=== PATIENT | female | born 1955 | race Caucasian/White ===

== ENCOUNTER 2022-03-11 19:36 | Inpatient (IN) | payer BC ==
[~2022-03-11] VITALS: Ht 160 cm; Wt 80.0 kg
[2022-03-11] VITALS (19 sets, daily range): BP systolic 110–229; BP diastolic 54–163
--- NOTE | 2022-03-11 19:40 | NUR ---
PT TO ROOM 12 FOR TRIAGE.
[2022-03-11 20:32] LABS: URINE BILIRUBIN - DIPSTICK NEGATIVE (NEGATIVE); URINE BLOOD DIPSTICK NEGATIVE (NEGATIVE); URINE COLOR YELLOW; URINE GLUCOSE - DIPSTICK NEGATIVE (NEGATIVE); URINE KETONE NEGATIVE (NEGATIVE); URINE LEUK ESTERASE NEGATIVE (NEGATIVE); URINE PROTEIN - DIPSTICK NEGATIVE (NEG-TRACE); URINE UROBILINOGEN - DIPSTICK 0.2 E.U./dL (0.2)
[2022-03-11 20:33] LABS: HEMATOCRIT 44.1 % (37.0-47.0); HEMOGLOBIN 14.8 g/dl (12.0-16.0); IMMATURE GRANULOCYTES 0.1 % (0.0-5.0); MEAN CELL VOLUME 90.2 fL CALC (80.0-100.0); MEAN CORPUSCULAR HGB 30.3 pG CALC (26.0-32.0); MEAN CORPUSCULAR HGB CONC 33.6 g/dL CAL (32.0-36.0); NEUT# 4.15 thou/uL (2.00-7.15); RED BLOOD COUNT 4.89 mill/uL (4.20-5.60); RED CELL DISTRI WIDTH 12.1 % (11.5-15.5)
[2022-03-11 20:36] LABS: URINE NITRITE - DIPSTICK NEGATIVE (Negative)
[2022-03-11 20:43] LABS: ALBUMIN 5.1 g/dL (3.2-5.0); ALKALINE PHOSPHATASE 86 u/l (38-126); ANION GAP 13 (6-22 (CALC)); BILIRUBIN, TOTAL 0.6 mg/dL (0.0-1.4); BUN 19 mg/dL (8-23); BUN/CREATININE RATIO 24 (12-20 (CALC)); CARBON DIOXIDE 28 mmol/l (22-30); CHLORIDE 104 mmol/l (95-108); CPK 71 u/l (30-165); CREATININE 0.8 mg/dL (0.5-1.0); ETHYL ALCOHOL 0 mg/dl (0-30); GFR FOR AFR.AMER. > 60 ML/MIN (>=60 (CALC)); GFR OTHER RACES > 60 ML/MIN (>=60 (CALC)); MAGNESIUM 1.8 mg/dL (1.6-2.3); POTASSIUM 3.9 mmol/l (3.5-5.1); SGOT/AST 24 u/l (9-36); SODIUM 140 mmol/l (137-146); TOTAL PROTEIN 7.7 g/dL (6.3-8.2)
[2022-03-11 20:47] LABS: ACT PARTIAL THROMBO TIME 24.7 SECONDS (20.0-32.5); PROTHROMBIN TIME 10.1 SECONDS (9.0-12.5)
[2022-03-11 20:56] LABS: MYOGLOBIN 26 ng/mL (0 - 62)
[2022-03-11 21:14] LABS: TSH, 3RD GENERATION 2.92 uIU/mL (0.47 - 4.68)
--- NOTE | 2022-03-11 22:43 | NUR ---
66 yr old white female admitted icu4 per stretcher from er. transferred self to bed. bed weight obtained. cardiac catheterization technician shows sinus rhythm. cardizem gtt infusing per rac site. history obtained per pt. oriented to room. fall precautions initiated.
[2022-03-12] VITALS (18 sets, daily range): BP systolic 100–186; BP diastolic 45–98
--- NOTE | 2022-03-12 00:01 | NUR ---
eyes closed. no distress. front desk monitor shows sinus fred.
--- NOTE | 2022-03-12 02:00 | NUR ---
resting wuietly. resps even & unlabored. no apparent distress.
--- NOTE | 2022-03-12 02:20 | NUR ---
lab here. blood drawn.
--- NOTE | 2022-03-12 05:52 | NUR ---
amb self to br then back to bed. vita well.
--- NOTE | 2022-03-12 09:00 | NUR ---
report received from Lary Obrien RN; care assumed
--- NOTE | 2022-03-12 09:20 | NUR ---
pt awake in bed; no apparent distress noted; pt offers no complaints; assessment completed at this time; pt alert and oriented; denies pain, chest pain; resp even and unlabored; lungs clear; skin color wnl; ra; hr reg; strong pulses; no edema noted; sr on monitor; abd soft with bs present; no bm noted per appeals writer; no urine to inspect at this time; #20 flushed and patent to rac; no redness or edema noted at site; plan of care explained; pt admits to having a similiar episode of irreg heart rate/ palpitations 2 years ago; pt also voices she has severe "white coat syndrome"; call light within reach; will continue to monitor
--- NOTE | 2022-03-12 09:30 | NUR ---
Dr Angeles present at bedside to assess pt and discuss plan of care
--- NOTE | 2022-03-12 11:10 | NUR ---
pt transferred to echo department via wc with rn cardiac in stable condition;
--- NOTE | 2022-03-12 11:53 | NUR ---
pt returned to ICU bed 4 via wc accompanied by this gag writer; ambulatory with steady gait to bed; deny needs; sr on monitor; will continue to monitor
--- NOTE | 2022-03-12 12:09 | NUR ---
pt awake in bed eating lunch; offers no complaints; no apparent distress noted; sr on monitor; iv intact; call light within reach; will continue to monitor
--- NOTE | 2022-03-12 13:48 | NUR ---
report giving to Lary Obrien RN
[2022-03-12] MEDS ORDERED: LOPRESSOR25 MG PO (14:05)
[2022-03-12] MEDS ORDERED: LOSARTAN POTASS50 MG PO (14:05)
[2022-03-12] MEDS ORDERED: ELIQUIS5 MG PO (14:05)
[2022-03-13] MEDS ORDERED: HYDROCHLOROT25 MG PO (23:20)
[2022-03-13] MEDS ORDERED: LOPRESSOR50 M1 PO (23:20)
[2022-03-13] MEDS ORDERED: LOSARTAN POTAS100 MG PO (23:20)
== END 2022-03-12 14:35 | disposition home or self-care (01) | DRG 310 ==
LOC: ED 19:36 → ED-I 22:06 → ED 22:24 → ICU 22:25
PROVIDERS: Family Medicine; ADMIT Internal Medicine; ATTEND Internal Medicine
PROC: 3E0234Z Introduction of Serum, Toxoid and Vaccine into Muscle, Percutaneous Approach (ICD-10-PCS; principal; 2022-03-12)
DX: I48.91 Unspecified atrial fibrillation (principal); I10 Essential (primary) hypertension; Z23 Encounter for immunization; Z87.891 Personal history of nicotine dependence; Z20.822 Contact with and (suspected) exposure to COVID-19
CPT/HCPCS: J1650

== ENCOUNTER 2022-03-13 21:39 | Emergency (ER) | payer BC ==
[~2022-03-13] VITALS: Ht 160 cm; Wt 72.0 kg
[2022-03-13] VITALS (10 sets, daily range): BP systolic 152–240; BP diastolic 82–133
[~2022-03-13 21:39] MED LIST: ELIQUIS5 MG PO; LOPRESSOR25 MG PO; LOSARTAN POTASS50 MG PO
[2022-03-13 22:32] LABS: ANION GAP 14 (6-22 (CALC)); BUN 18 mg/dL (8-23); BUN/CREATININE RATIO 21 (12-20 (CALC)); CARBON DIOXIDE 27 mmol/l (22-30); CHLORIDE 104 mmol/l (95-108); CREATININE 0.9 mg/dL (0.5-1.0); GFR FOR AFR.AMER. > 60 ML/MIN (>=60 (CALC)); GFR OTHER RACES > 60 ML/MIN (>=60 (CALC)); SODIUM 140 mmol/l (137-146)
[2022-03-13] MEDS ORDERED: LOSARTAN POTAS100 MG PO (23:20)
[2022-03-13] MEDS ORDERED: HYDROCHLOROT25 MG PO (23:20)
[2022-03-13] MEDS ORDERED: LOPRESSOR50 M1 PO (23:20)
[2022-03-14 00:08] VITALS: BP 163/80
[2022-03-14 00:15] VITALS: BP 173/80
== END 2022-03-14 00:23 | disposition home or self-care (01) | DRG 305 ==
LOC: ED 21:39
PROVIDERS: Family Medicine
DX: I10 Essential (primary) hypertension (principal)

== ENCOUNTER → 2022-07-08 | Emergency (ER) | payer BC ==
[~2022-07-08] MED LIST changes: +HYDROCHLOROT25 MG PO; +LOPRESSOR50 M1 PO; +LOSARTAN POTAS100 MG PO
== END | disposition home or self-care (01) | DRG 951 ==
LOC: ED 03:44 → LWOBS 05:30
DX: Z53.21 Procedure and treatment not carried out due to patient leaving prior to being seen by health care provider (principal)

== ENCOUNTER 2022-08-18 12:51 | Emergency (ER) | payer MEDICARE, BC ==
[~2022-08-18] VITALS: Ht 160 cm; Wt 79.3 kg
[2022-08-18 13:00] VITALS: BP 189/94
[2022-08-18 13:15] VITALS: BP 175/87
[2022-08-18 13:15] LABS: BASO% 0.5 % (0-3); EOS% 2.3 % (0-8); HEMATOCRIT 40.8 % (37.0-47.0); HEMOGLOBIN 13.7 g/dl (12.0-16.0); IMMATURE GRANULOCYTES 0.3 % (0.0-5.0); LYMPH% 31.3 % (15-41); MEAN CELL VOLUME 91.1 fL CALC (80.0-100.0); MEAN CORPUSCULAR HGB 30.6 pG CALC (26.0-32.0); MEAN CORPUSCULAR HGB CONC 33.6 g/dL CAL (32.0-36.0); MONO% 8.1 % (2-13); NEUT# 3.77 thou/uL (2.00-7.15); NEUT% 57.5 % (42-76); RED BLOOD COUNT 4.48 mill/uL (4.20-5.60); RED CELL DISTRI WIDTH 12.2 % (11.5-15.5)
[2022-08-18 13:16] VITALS: BP 170/87
[2022-08-18 13:21] LABS: ALBUMIN 4.9 g/dL (3.2-5.0); ALKALINE PHOSPHATASE 80 u/l (38-126); ANION GAP 11 (6-22 (CALC)); BILIRUBIN, TOTAL 0.4 mg/dL (0.02-1.3); BUN 26 mg/dL (8-23); BUN/CREATININE RATIO 27 (12-20 (CALC)); CARBON DIOXIDE 32 mmol/l (22-30); CHLORIDE 104 mmol/l (95-108); GFR FOR AFR.AMER. > 60 ML/MIN (>=60 (CALC)); GFR OTHER RACES 56 ML/MIN (>=60 (CALC)); LIPASE 74 u/l (23-300); POTASSIUM 3.5 mmol/l (3.5-5.1); SODIUM 143 mmol/l (137-146); TOTAL PROTEIN 7.9 g/dL (6.3-8.2)
[2022-08-18 13:22] LABS: SGOT/AST 47 u/l (9-36)
[2022-08-18 13:30] VITALS: BP 164/82
[2022-08-18 14:42] LABS: URINE BILIRUBIN - DIPSTICK NEGATIVE (NEGATIVE); URINE BLOOD DIPSTICK NEGATIVE (NEGATIVE); URINE COLOR YELLOW; URINE GLUCOSE - DIPSTICK NEGATIVE (NEGATIVE); URINE KETONE NEGATIVE (NEGATIVE); URINE LEUK ESTERASE NEGATIVE (NEGATIVE); URINE NITRITE - DIPSTICK NEGATIVE (Negative); URINE PROTEIN - DIPSTICK NEGATIVE (NEG-TRACE); URINE UROBILINOGEN - DIPSTICK 0.2 E.U./dL (0.2)
[2022-08-18 18:11] VITALS: BP 164/82
== END 2022-08-18 18:22 | disposition home or self-care (01) ==
LOC: ED 12:51
PROVIDERS: Family Medicine
DX: R10.13 Epigastric pain (principal); I10 Essential (primary) hypertension; I48.91 Unspecified atrial fibrillation; Z87.891 Personal history of nicotine dependence; Z20.822 Contact with and (suspected) exposure to COVID-19
CPT/HCPCS: Q9967

== ENCOUNTER 2023-06-13 20:48 | Emergency (ER) | payer MEDICARE, BC ==
[2023-06-13] VITALS (8 sets, daily range): BP systolic 98–125; BP diastolic 57–77
[~2023-06-13] VITALS: Ht 160 cm; Wt 72.0 kg
[~2023-06-13 20:48] MED LIST changes: +LIPITOR10 M1 PO
[2023-06-13] MEDS ORDERED: LOSARTAN POTAS100 MG PO (21:31)
[2023-06-13] MEDS ORDERED: ZETIA10 MG PO (21:31)
[2023-06-13] MEDS ORDERED: HYDROCHLOROT25 MG PO (21:32)
[2023-06-13 21:34] LABS: BASO% 0.4 % (0-3); EOS% 2.6 % (0-8); HEMATOCRIT 43.1 % (37.0-47.0); HEMOGLOBIN 14.7 g/dl (12.0-16.0); IMMATURE GRANULOCYTES 0.4 % (0.0-5.0); LYMPH% 33.5 % (15-41); MEAN CELL VOLUME 89.4 fL CALC (80.0-100.0); MEAN CORPUSCULAR HGB 30.5 pG CALC (26.0-32.0); MEAN CORPUSCULAR HGB CONC 34.1 g/dL CAL (32.0-36.0); MONO% 8.8 % (2-13); NEUT# 3.99 thou/uL (2.00-7.15); NEUT% 54.3 % (42-76); RED BLOOD COUNT 4.82 mill/uL (4.20-5.60); RED CELL DISTRI WIDTH 12.4 % (11.5-15.5)
[2023-06-13 21:41] LABS: ALBUMIN 4.7 g/dL (3.2-5.0); ALKALINE PHOSPHATASE 89 u/l (38-126); ANION GAP 13 (6-22 (CALC)); BILIRUBIN, TOTAL 0.4 mg/dL (0.02-1.3); BUN 23 mg/dL (8-23); BUN/CREATININE RATIO 28 (12-20 (CALC)); CARBON DIOXIDE 28 mmol/l (22-30); CHLORIDE 105 mmol/l (95-108); CREATININE 0.8 mg/dL (0.5-1.0); GFR FOR AFR.AMER. > 60 ML/MIN (>=60 (CALC)); GFR OTHER RACES > 60 ML/MIN (>=60 (CALC)); POTASSIUM 3.3 mmol/l (3.5-5.1); SGOT/AST 29 u/l (9-36); SODIUM 142 mmol/l (137-146); TOTAL PROTEIN 7.4 g/dL (6.3-8.2)
[2023-06-13 21:46] LABS: PROTHROMBIN TIME 9.6 SECONDS (9.0-12.5)
[2023-06-13 21:47] LABS: D-DIMER 0.17 mg/L (0.19-0.60)
[2023-06-14] VITALS: BP 120/75
[2023-06-14 00:31] VITALS: BP 125/85
[2023-06-14 01:00] VITALS: BP 117/63
[2023-06-14 01:30] VITALS: BP 113/58
[2023-06-14 01:40] VITALS: BP 113/58
== END 2023-06-14 01:40 | disposition home or self-care (01) ==
LOC: ED 20:48
PROVIDERS: Family Medicine
DX: I48.91 Unspecified atrial fibrillation (principal); I10 Essential (primary) hypertension

== ENCOUNTER 2024-01-15 00:47 | Emergency (ER) | payer BC ==
[~2024-01-15] VITALS: Ht 157.5 cm; Wt 72.0 kg
[~2024-01-15 00:47] MED LIST changes: +ATENOLOL50 MG PO; +DICYCLOMINE HYD10 MG PO; +POTASSIUM CHLO20 ME1 PO; +TENORMIN PO; +ZETIA10 MG PO
[2024-01-15 01:18] VITALS: BP 167/79
[2024-01-15] MEDS ORDERED: ONDANSETRON HCl 4 MG/2 ML SDV IV ONE (01:25)
[2024-01-15] MEDS ORDERED: SODIUM CHLORIDE 0.9% 1,000 ML IV ONE (01:25)
[2024-01-15] MEDS ORDERED: FAMOTIDINE 10MG/ML 2ML SDV IV ONE (01:25)
[2024-01-15] MEDS ORDERED: KETOROLAC TROMETHAMINE 30 MG/ML SDV IV ONE (01:25)
[2024-01-15 01:31] VITALS: BP 123/68
[2024-01-15 02:00] VITALS: BP 139/59
[2024-01-15 02:19] LABS: BASO% 0.5 % (0-3); EOS% 3.5 % (0-8); HEMATOCRIT 40.3 % (37.0-47.0); HEMOGLOBIN 13.9 g/dl (12.0-16.0); IMMATURE GRANULOCYTES 0.3 % (0.0-5.0); LYMPH% 19.2 % (15-41); MEAN CORPUSCULAR HGB 31.4 pG CALC (26.0-32.0); MEAN CORPUSCULAR HGB CONC 34.5 g/dL CAL (32.0-36.0); MONO% 7.2 % (2-13); NEUT# 5.32 thou/uL (2.00-7.15); NEUT% 69.3 % (42-76); RED BLOOD COUNT 4.43 mill/uL (4.20-5.60); RED CELL DISTRI WIDTH 12.2 % (11.5-15.5)
[2024-01-15 02:30] VITALS: BP 130/62
[2024-01-15 02:37] LABS: ALBUMIN 4.6 g/dL (3.2-5.0); BILIRUBIN, TOTAL 0.8 mg/dL (0.02-1.3); POTASSIUM 3.4 mmol/l (3.5-5.1); TOTAL PROTEIN 7.4 g/dL (6.3-8.2)
[2024-01-15 03:01] VITALS: BP 103/62
[2024-01-15] MEDS ORDERED: TRAMADOL HYDROC50 M1 PO (04:59)
[2024-01-15] MEDS ORDERED: ONDANSETRON4 MG PO (04:59)
[2024-01-15 05:11] VITALS: BP 103/62
== END 2024-01-15 05:11 | disposition home or self-care (01) | DRG 446 ==
LOC: ED 00:47
PROVIDERS: Family Medicine
DX: K80.20 Calculus of gallbladder without cholecystitis without obstruction (principal); I10 Essential (primary) hypertension; I48.91 Unspecified atrial fibrillation
CPT/HCPCS: Q9967

== ENCOUNTER 2024-07-21 09:38 | Day surgery (SDC) | payer BC ==
[~2024-07-21 09:38] MED LIST changes: +GLAUCOMA GTTS IO; +OMEGA 3; +ONDANSETRON4 MG PO; +TRAMADOL HYDROC50 M1 PO
[2024-07-21] MEDS ORDERED: SODIUM CHLORIDE 0.9% 100 ML IV ONE (09:41)
[2024-07-21] MEDS ORDERED: SODIUM CHLORIDE 0.9% 1,000 ML IV ONE (09:41)
[2024-07-21] MEDS ORDERED: ceFAZolin Sodium 2 GM/VIAL SDV ONE (09:41)
[2024-07-21] MEDS ORDERED: FAMOTIDINE 10MG/ML 2ML SDV IV ONE (09:41)
[2024-07-21] MEDS ORDERED: XALATAN 0.005%2.5 ML TOP (09:49)
[2024-07-21] MEDS ORDERED: ISOVUE-300 (Iopamidol) 100 ML SDV IV ONE (10:07)
[2024-07-21] MEDS ORDERED: GLUCAGON HCL (Rdna) 1 MG VIAL ONE (10:07)
[2024-07-21] MEDS ORDERED: LIDOcaine HCl 1% (Local Anesth.) 20 ML VIAL ONE (10:09)
[2024-07-21] MEDS ORDERED: PERCOCET 5/325M1 TAB PO (11:03)
[2024-07-21] MEDS ORDERED: ACETAMINOPHEN 100 ML IV ONE (11:28)
[2024-07-21] MEDS ORDERED: ROCURONIUM BROMIDE 10 MG/ML 5 ML VIAL IV ONE (11:36)
[2024-07-21] MEDS ORDERED: SUGAMMADEX SODIUM 200 MG/2 ML SDV IV ONE (11:36)
[2024-07-21] MEDS ORDERED: GLYCOPYRROLATE 0.2 MG/ML IV ONE (11:36)
[2024-07-21] MEDS ORDERED: LIDOCAINE HCL 2% 2ML SDV IV ONE (11:36)
[2024-07-21] MEDS ORDERED: SUCCINYLCHOLINE CHLORIDE 20 MG/ML 10ML VIAL IV ONE (11:36)
[2024-07-21] MEDS ORDERED: KETOROLAC TROMETHAMINE 30 MG/ML SDV IV ONE (11:36)
[2024-07-21] MEDS ORDERED: PROPOFOL 200 MG/20 ML VIAL IV ONE (11:36)
[2024-07-21] MEDS ORDERED: STERILE WATER FOR IRRIGATION 1,000 ML BTL IR ONE (11:54)
[2024-07-21] MEDS ORDERED: SODIUM CHLORIDE 1,000 ML BTL IR ONE ×2 (11:54→12:52)
[2024-07-21] MEDS ORDERED: HYDROmorphone HCL 2 MG/AMP ONE (11:56)
[2024-07-21] MEDS ORDERED: ONDANSETRON HCl 4 MG/2 ML SDV ONE (12:24)
[2024-07-21 12:30] VITALS: BP 158/87
[2024-07-21] MEDS ORDERED: STERILE WATER FOR IRRIGATION 500 ML BTL IR ONE (12:52)
== END 2024-07-21 12:37 | disposition home or self-care (01) | DRG 419 ==
LOC: ORM 09:38
PROVIDERS: ATTEND Surgery
PROC: 0FT44ZZ Resection of Gallbladder, Percutaneous Endoscopic Approach (ICD-10-PCS; principal; 2024-07-21)
DX: K80.10 Calculus of gallbladder with chronic cholecystitis without obstruction (principal); I10 Essential (primary) hypertension; I48.91 Unspecified atrial fibrillation; E78.00 Pure hypercholesterolemia, unspecified; Z87.891 Personal history of nicotine dependence; Z79.01 Long term (current) use of anticoagulants; Z01.818 Encounter for other preprocedural examination; Z11.52 Encounter for screening for COVID-19; K80.20 Calculus of gallbladder without cholecystitis without obstruction
CPT/HCPCS: J0131; J0690; J1171; J1596; J1610; J2405; Q9966

== ENCOUNTER 2024-07-25 08:29 | Observation (INO) | payer BC ==
[2024-07-25] VITALS (17 sets, daily range): BP systolic 99–151; BP diastolic 52–103
[~2024-07-25] VITALS: Ht 160 cm; Wt 71.0 kg
[~2024-07-25 08:29] MED LIST changes: +PERCOCET 5/325M1 TAB PO; +XALATAN 0.005%2.5 ML TOP
[2024-07-25] MEDS ORDERED: SODIUM CHLORIDE 0.9% 250 ML IV PRN (08:40)
[2024-07-25] MEDS ORDERED: dilTIAZem HCL 50 MG/10 ML SDV IV ONE (08:40)
[2024-07-25] MEDS ORDERED: DILTIAZEM HCL 125 MG in SODIUM CHLORIDE 0.9% 100 ML IV ONE (08:40)
[2024-07-25] MEDS ORDERED: SODIUM CHLORIDE 0.9% 1,000 ML IV ONE (08:55)
[2024-07-25 09:16] LABS: BASO% 0.5 % (0-3); EOS% 2.2 % (0-8); HEMATOCRIT 46.2 % (37.0-47.0); HEMOGLOBIN 15.3 g/dl (12.0-16.0); IMMATURE GRANULOCYTES 0.3 % (0.0-5.0); LYMPH% 26.6 % (15-41); MEAN CORPUSCULAR HGB 30.5 pG CALC (26.0-32.0); MEAN CORPUSCULAR HGB CONC 33.1 g/dL CAL (32.0-36.0); MONO% 8.8 % (2-13); NEUT# 4.75 thou/uL (2.00-7.15); NEUT% 61.6 % (42-76); RED BLOOD COUNT 5.02 mill/uL (4.20-5.60); RED CELL DISTRI WIDTH 12.1 % (11.5-15.5)
[2024-07-25 09:29] LABS: ALBUMIN 4.2 g/dL (3.2-5.0); ALKALINE PHOSPHATASE 65 u/l (38-126); ANION GAP 10 (6-22 (CALC)); BILIRUBIN, TOTAL 0.8 mg/dL (0.02-1.3); BUN 23 mg/dL (8-23); BUN/CREATININE RATIO 25 (12-20 (CALC)); CARBON DIOXIDE 32 mmol/l (22-30); CHLORIDE 101 mmol/l (95-108); CREATININE 0.9 mg/dL (0.5-1.0); ESTIMATED GFR 70 ML/MIN (>=90 (CALC)); POTASSIUM 3.4 mmol/l (3.5-5.1); SODIUM 140 mmol/l (137-146); TOTAL PROTEIN 6.8 g/dL (6.3-8.2)
[2024-07-25 09:31] LABS: SGOT/AST 27 u/l (9-36)
[2024-07-25] MEDS ORDERED: POTASSIUM CHLORIDE 20 MEQ/TAB PO ONE (09:40)
[2024-07-25 10:00] LABS: TSH, 3RD GENERATION 1.34 uIU/mL (0.47 - 4.68)
[2024-07-25] MEDS ORDERED: ONDANSETRON 4 MG/TAB ODT SL PRN (11:00)
[2024-07-25] MEDS ORDERED: ACETAMINOPHEN 325 MG/TAB PO PRN (11:00)
[2024-07-25] MEDS ORDERED: oxyCODONE HCL 5 MG/TAB PO PRN (11:00)
[2024-07-25 16:38] LABS: URINE BILIRUBIN - DIPSTICK Negative (NEGATIVE); URINE BLOOD DIPSTICK Trace-intact (NEGATIVE); URINE CLARITY Clear; URINE GLUCOSE - DIPSTICK Negative (NEGATIVE); URINE KETONE Negative (NEGATIVE); URINE LEUK ESTERASE Negative (Negative); URINE NITRITE - DIPSTICK Negative (Negative); URINE PROTEIN - DIPSTICK Negative (NEG-TRACE); URINE UROBILINOGEN - DIPSTICK 0.2 E.U./dL (0.2)
[2024-07-25 16:39] LABS: URINE COLOR Light yellow
[2024-07-25] MEDS ORDERED: APIXABAN BASE 5 MG TAB PO SCH (21:00)
[2024-07-26 00:04] VITALS: BP 121/52
[2024-07-26 04:40] VITALS: BP 132/58
[2024-07-26 05:13] LABS: BASO% 0.5 % (0-3); EOS% 2.4 % (0-8); IMMATURE GRANULOCYTES 0.5 % (0.0-5.0); LYMPH% 27.4 % (15-41); MEAN CELL VOLUME 93.1 fL CALC (80.0-100.0); MEAN CORPUSCULAR HGB 31.7 pG CALC (26.0-32.0); MEAN CORPUSCULAR HGB CONC 34.1 g/dL CAL (32.0-36.0); MONO% 8.7 % (2-13); NEUT# 3.78 thou/uL (2.00-7.15); NEUT% 60.5 % (42-76); RED BLOOD COUNT 3.91 mill/uL (4.20-5.60); RED CELL DISTRI WIDTH 12.2 % (11.5-15.5)
[2024-07-26 05:14] LABS: HEMATOCRIT 36.4 % (37.0-47.0); HEMOGLOBIN 12.4 g/dl (12.0-16.0)
[2024-07-26 05:35] LABS: ALBUMIN 3.6 g/dL (3.2-5.0); BILIRUBIN, TOTAL 0.6 mg/dL (0.02-1.3); CREATININE 0.8 mg/dL (0.5-1.0); MAGNESIUM 1.7 mg/dL (1.6-2.3); POTASSIUM 3.5 mmol/l (3.5-5.1); TOTAL PROTEIN 5.9 g/dL (6.3-8.2)
[2024-07-26 06:13] VITALS: BP 145/58
[2024-07-26 07:00] VITALS: BP 145/58
[2024-07-26] MEDS ORDERED: ATENOLOL 50 MG/TAB PO SCH (09:00)
[2024-07-26] MEDS ORDERED: LOSARTAN Potassium 50 MG/TAB PO SCH (09:00)
[2024-07-26] MEDS ORDERED: hydroCHLOROthiazide 25 MG/TAB PO SCH (09:00)
[2024-07-26 09:11] VITALS: BP 147/60
== END 2024-07-26 10:43 | disposition home or self-care (01) | DRG 310 ==
LOC: ED 08:29 → ED-I 10:00 → ED 10:38 → MS2 10:39
PROVIDERS: Family Medicine; ADMIT Internal Medicine; ATTEND Internal Medicine
DX: I48.92 Unspecified atrial flutter (principal); R73.03 Prediabetes; E87.6 Hypokalemia; I10 Essential (primary) hypertension; I48.91 Unspecified atrial fibrillation; E78.00 Pure hypercholesterolemia, unspecified; Z79.01 Long term (current) use of anticoagulants; Z90.49 Acquired absence of other specified parts of digestive tract; Z87.891 Personal history of nicotine dependence
CPT/HCPCS: G0378